=== PATIENT | female | born 1945 ===

== ENCOUNTER 2024-08-28 08:22 | Outpatient (CLI) | payer OTHER ==
[~2024-08-28 08:22] MED LIST: DIOVAN40 MG PO; TYLENOL EXTRA500 M1 PO
== END 2024-08-28 08:26 | disposition home or self-care (01) ==
LOC: TOM 08:22
PROVIDERS: ATTEND Internal Medicine Gastroenterology
DX: Z12.11 Encounter for screening for malignant neoplasm of colon (principal)

== ENCOUNTER 2025-01-03 12:53 | Outpatient (CLI) | payer OTHER | END 2025-01-03 13:02 | disposition home or self-care (01) | LOC: SONOGRAMA 12:53 | PROVIDERS: ATTEND Obstetrics & Gynecology | DX: D25.9 Leiomyoma of uterus, unspecified (principal) ==